=== PATIENT | female | born 2000 | race Caucasian/White ===

== ENCOUNTER 2024-10-06 16:22 | Emergency (ER) | payer OTHER, SELFPAY ==
[2024-10-06 16:31] VITALS: BP 125/80; PULSE 91; TEMP 37.2; O2SAT 97; BMI 26.6
[2024-10-06 17:12] LABS: Influenza Virus A Antigen Negative; Influenza Virus B Antigen Negative; Internal Control Within Normal Limits; SARS-CoV-2 Ag NEGATIVE (NEGATIVE)
--- NOTE | 2024-10-06 18:49 | ED.URI1 ---
HPI - URI/Sore Throat General Chief Complaint: Upper Respiratory Infection Stated Complaint: FLU LIKE SYMPTOMS Time Seen by Provider: 10/06/24 18:43 Source: patient Limitations: no limitations History of Present Illness HPI Narrative: Patient is a 24-year-old female who presents to the emergency department for the evaluation of upper respiratory symptoms that began yesterday. She reports nasal drainage, sore throat, cough. Her family members have been diagnosed with influenza. She has had no objective fevers but reports hot and cold chills. She has no concern for . She has had no vomiting or diarrhea. No medications prior to arrival. Related Data Previous Rx's ?Medication ?Instructions ?Recorded vnsbudsbgvneayo-yyqmqibnbovvbam-BR 10 ml PO Q6H PRN cold symptoms 10/06/24 2 mg-30 mg-10 mg/5 mL oral syrup #200 mL (Bromfed DM) ondansetron 4 mg disintegrating 4 mg PO Q6H PRN nausea and 10/06/24 tablet vomiting #12 tabs Allergies Allergy/AdvReac Type Severity Reaction Status Date / Time No Known Drug Allergies Allergy Verified 10/06/24 16:31 Review of Systems ROS Constitutional Reports: chills; Denies: fever Ears, nose, mouth, and throat Reports: throat pain, nasal discharge and nasal congestion Cardiovascular Denies: chest pain Respiratory Reports: cough; Denies: shortness of breath Gastrointestinal Denies: nausea or vomiting Integumentary/Breast Denies: rash Neurological Reports: headache Hematologic/Lymphatic Denies: easy bruising or easy bleeding PFSH PFS Social History Little interest or pleasure in doing things: not at all Feeling down, depressed, or hopeless: not at all Exam Narrative Exam Narrative: Gen.: Awake, alert, in no distress Head: Normocephalic, atraumatic ENT: Moist mucous membranes, left TM is bulging, no pharyngeal erythema or tonsillar edema. Uvula midline with airway widely open and patent. No trismus or drooling Respiratory: No respiratory distress, lungs clear bilaterally Cardio: Regular rate and rhythm Extremities: Moves extremities equally Psych: Normal mood and affect Neuro: No focal neuro deficit Skin: Warm, dry, intact Constitutional Vital Signs, click to edit/add: Last Vital Signs Temp 99.0 F 10/06/24 16:31 Pulse 91 H 10/06/24 16:31 Resp 18 10/06/24 16:31 BP 125/80 10/06/24 16:31 Pulse Ox 97 10/06/24 16:31 O2 Del Method Room Air 10/06/24 16:31 Course Vital Signs Vital signs: Vital Signs Temperature 99.0 F 10/06/24 16:31 Pulse Rate 91 H 10/06/24 16:31 Respiratory Rate 18 10/06/24 16:31 Blood Pressure 125/80 10/06/24 16:31 Pulse Oximetry 97 10/06/24 16:31 Oxygen Delivery Method Room Air 10/06/24 16:31 Temperature 99.0 F 10/06/24 16:31 Pulse Rate 91 H 10/06/24 16:31 Respiratory Rate 18 10/06/24 16:31 Blood Pressure 125/80 10/06/24 16:31 Pulse Oximetry 97 10/06/24 16:31 Oxygen Delivery Method Room Air 10/06/24 16:31 MDM - URI/Sore Throat MDM Narrative Medical decision making narrative: Patient with negative swabs for influenza and COVID, however with multiple family member sick in the home with the same, patient was counseled that she likely has influenza. She was treated with Decadron in the ER and discharged home on Bromfed-DM and Zofran. Follow-up PCP and return to the ER if symptoms change or worsen SUPERVISED APC VISIT, PHYSICIAN ATTESTATION: Based on the medical record the care appears appropriate. ? Medical Records Attestation: I reviewed the patient's medical records. Lab Data Attestation: I reviewed the patient's lab results. Labs: Lab Results 10/06/24 Range/Units 16:34 Influenza Type A Ag Negative Influenza Type B Ag Negative SARS-CoV-2 Ag (CV2AG) Negative (NEGATIVE) Discharge Plan Discharge Chief Complaint: Upper Respiratory Infection Clinical Impression: Upper respiratory infection, Influenza Patient Disposition: Home, Self-Care Time of Disposition Decision: 18:47 Condition: Good Prescriptions / Home Meds: New yzpmifeiawukrik-tpjqvssmu-QQ [Bromfed DM] 2-30-10 mg/5 mL syrup 10 ml PO Q6H PRN (Reason: cold symptoms) Qty: 200 0RF ondansetron 4 mg tablet,disintegrating 4 mg PO Q6H PRN (Reason: nausea and vomiting) Qty: 12 0RF Print Language: Hungarian Instructions: Influenza (ED) Referrals: Physician,Non-Staff, MD [Primary Care Provider] - 1 week
[2024-10-06] MEDS: DEXAMETHASONE SOD PHOS 10 MG/ML VIAL PO (18:56)
== END 2024-10-06 18:58 | disposition home or self-care (01) ==
PROVIDERS: Emergency Provider Emergency Medicine; PCP Family Medicine
DX: J11.1 Influenza due to unidentified influenza virus with other respiratory manifestations (principal); R05.9 Cough, unspecified; J34.89 Other specified disorders of nose and nasal sinuses
CPT/HCPCS: 87804; 87811; 99284; J1100

== ENCOUNTER 2025-07-26 19:12 | Emergency (ER) | payer BC, SELFPAY ==
--- OUTSIDE RECORDS SUMMARY | 2025-01-18 04:30 | XMS_ITS ---
Author Organization [facility] Serv[facility] Address [address] [place] [address] Care Team Providers Care Visual Coordinator Name Role Phone Shelley Montana Primary Care Provider [phone] REASON FOR VISIT 3 weeks Social History Sex Assigned At : Social History Observation Description Sex Assigned At Female Encounters Encounter Location Date Provider Diagnosis [place] [address] [place] [address] 01/18/2025 Shelley Vinh Plan Of Treatment Next Appt Details Provider Name:Shelley Welchmalu castañeda, 08/16/2025 12:45:00 PM, [address] [place], [address], Progress Notes * TERESA PARIKH MDOB:[birth year] (25 yo F)Acc No.[id number]:01/18/2025 Behavioral Health Patient: TERESA BANEGAS Provider:?CATERINA PALMER-BCDOB: 2000???Age:24 Y???Sex:FemaleDate:01/18/2025Phone:[phone]:[address] [place] [id number] Subjective: * Chief Complaints: * 3 weeks Billing Information: * Procedure Codes: * Electronic signature of CATERINA Palmer BC on 07/26/2025 at 07:51 PM EST Sign off status: Pending * Appointment Provider: Lyle MONTANA PMHNP-BC Date: 0 01/18/2025 Generated for Printing/Faxing/eTransmitting on:?07/26/2025 07:51 PM EST
--- OUTSIDE RECORDS SUMMARY | 2025-02-25 03:30 | XMS_ITS ---
Author Organization [facility] Address [address] [place] [address] Care Team Providers Care Library Helper Name Role Phone Shelley Justice Primary Care Provider [phone] Nikole Tang [phone] REASON FOR VISIT therapy Social History Sex Assigned At : Social History Observation Description Sex Assigned At Female Encounters Encounter Location Date Provider Diagnosis [facility] [address] [place] [address] 02/25/2025 Nikole Paulson Plan Of Treatment Next Appt Details Provider Name:Shelley castañeda, 08/16/2025 12:45:00 PM, [address] [place], [address], Progress Notes * TERESA PARIKH MDOB:[birth year] (25 yo F)Acc No.[id number]:02/25/2025 Consult - Patient Patient: TERESA BANEGAS :?Nikole Paulson LPCDOB:2000???Age:24 Y ???Sex:FemaleDate:02/25/2025Phone:[phone]:[address] [place] [id number]:Shelley Justice Subjective: * Chief Complaints: * T herapy Care Plan Details* * Electronic signature of Nikole Paulson LPC on 07/26/2025 at 07:51 PM ESTSign off status: Pending * Provider: Jolene Paulson LPC Date: 0 02/25/2025 Generated for Printing/Faxing/eTransmitting on:?07/26/2025 07:51 PM EST
[2025-07-26 19:19] VITALS: BP 126/86; PULSE 97; TEMP 38.2; O2SAT 100; BMI 25.8
--- NOTE | 2025-07-26 19:33 | ED.URI1 ---
HPI - URI/Sore Throat General Chief Complaint: Upper Respiratory Infection Stated Complaint: EYE PAIN/NEAR SYNCOPE Time Seen by Provider: 07/26/25 19:25 History of Present Illness HPI Narrative: ill past 4 days. Boyfriends mother who lives with them is ill also. Has body aches, rhinorrhea, cough, nausea and feels dizzy. States her eyes ache also. vision is ok. No headache . Not short of breath. Related Data Home Medications ?Medication ?Instructions ?Recorded ?Confirmed buspirone 10 mg tablet mg 07/26/25 Allergies Allergy/AdvReac Type Severity Reaction Status Date / Time No Known Drug Allergies Allergy Verified 10/06/24 16:31 Review of Systems ROS Status of ROS 10 or more systems reviewed and unremarkable except as noted in history and below [facility] Social History Little interest or pleasure in doing things: not at all Feeling down, depressed, or hopeless: not at all Exam Constitutional Vital Signs, click to edit/add: Last Vital Signs Temp 99.7 F 07/26/25 20:47 Pulse 97 H 07/26/25 19:19 Resp 18 07/26/25 19:19 BP 126/86 07/26/25 19:19 Pulse Ox 100 07/26/25 19:19 O2 Del Method Room Air 07/26/25 19:19 Common normals: no apparent distress, average body habitus, oriented x3, no limitations, healthy appearing, alert and well nourished [facility] Common normals: normocephalic and head/scalp atraumatic Other: TMs clear Eye Common normals: PERRL, EOMs intact bilaterally and conjunctivae normal Respiratory Common normals: normal respiratory effort, no retractions, no use of accessory muscles and clear to auscultation bilaterally Cardio Common normals: regular rate, regular rhythm, S1 normal heart sound and S2 normal heart sound GI Common normals: Normal to inspection, nondistended, normoactive bowel sounds present, soft to palpation and non-tender Extremity Common normals: normal to inspection and full ROM Neuro Common normals: oriented x3, CN's II-XII intact bilaterally, moves all extremities and no focal motor deficits Psych Appearance: grossly normal Course Vital Signs Vital signs: Vital Signs Temperature 100.7 F H 07/26/25 19:19 Pulse Rate 97 H 07/26/25 19:19 Respiratory Rate 18 07/26/25 19:19 Blood Pressure 126/86 07/26/25 19:19 Pulse Oximetry 100 07/26/25 19:19 Oxygen Delivery Method Room Air 07/26/25 19:19 Temperature 99.7 F 07/26/25 20:47 Pulse Rate 97 H 07/26/25 19:19 Respiratory Rate 18 07/26/25 19:19 Blood Pressure 126/86 07/26/25 19:19 Pulse Oximetry 100 07/26/25 19:19 Oxygen Delivery Method Room Air 07/26/25 19:19 MDM - URI/Sore Throat MDM Narrative Medical decision making narrative: patient presents with body aches, rhinorrhea, cough that is dry and sensation of dizziness. No headache. Exam unremarkable except for sniffling. chest xray clear. CT sinuses with mucosa sinus thickening . ? odontogenic. Patient re interviewed and states she had a root canal2-3 months ago. Patient informed of diagnosis of influenza confirmed with nasal swab. will plan to treat with course of zithromax due to sinus thickening and have her follow up with her doctor for a recheck Lab Data Labs: Lab Results 07/26/25 07/26/25 Range/Units 19:45 19:47 WBC 3.8 L (4.0-11.0) 10^3/uL RBC 4.68 (4.20-5.40) 10^6/uL Hgb 13.6 (12.0-16.0) g/dL Hct 40.4 (36.0-48.0) % MCV 86.3 (81.0-99.0) fL MCH 29.1 (26.7-34.0) pg MCHC 33.7 (29.9-35.2) g/dL RDW 12.4 (11.0-15.0) % Plt Count 207 (150-450) 10^3/uL MPV 10.0 (9.5-13.5) fL Neut % (Auto) 68.0 (43.0-75.0) % Lymph % (Auto) 19.7 L (20.5-60.0) % [place] % (Auto) 11.2 (1.7-12.0) % Eos % (Auto) 0.8 L (0.9-7.0) % Baso % (Auto) 0.3 (0.2-2.0) % Neut # (Auto) 2.6 (1.4-6.5) 10^3/uL Lymph # (Auto) 0.7 L (1.2-3.8) 10^3/uL [place] # (Auto) 0.4 (0.3-0.8) 10^3/uL Eos # (Auto) 0.0 (0.0-0.7) 10^3/uL Baso # (Auto) 0.0 (0.0-0.1) 10^3/uL Abs Immat Gran (auto) 0.00 (0.00-0.03) 10^3/uL Imm/Tot Granulo (auto) 0.0 (0.0-0.5) % Sodium 138 (136-145) mmol/L Potassium 3.6 (3.5-5.1) mmol/L Chloride 104 (98-107) mmol/L Carbon Dioxide 24.6 (21.0-32.0) mmol/L Anion Gap 13.0 BUN 8.0 (7.0-18.0) mg/dL Creatinine 0.81 (0.55-1.02) mg/dL Est GFR ( Amer) >60 (>=60 mL/min/1.73m^2) Est GFR (Non-Af Amer) >60 (>=60 mL/min/1.73m^2) BUN/Creatinine Ratio 9.9 Glucose 91 (74-106) mg/dL Lactate 0.7 (0.4-2.0) mmol/L Calcium 8.9 (8.5-10.1) mg/dL Total Bilirubin 0.2 (0.2-1.0) mg/dL AST 37 (15-37) U/L ALT 33 (14-59) U/L Alkaline Phosphatase 79 (46-116) U/L Total Protein 8.2 (6.4-8.2) g/dL Albumin 4.0 (3.4-5.0) g/dL Globulin 4.2 g/dL Albumin/Globulin Ratio 1.0 Urine Color Lt. yellow (YELLOW) Urine Clarity Clear (CLEAR) Urine pH 5.5 (5.0-9.0) Ur Specific [place] 1.025 (1.005-1.025) Urine Protein Negative (NEG/TRACE) mg/dL Urine Glucose (UA) Negative (NEGATIVE) mg/dL Urine Ketones Negative (NEGATIVE) mg/dL Urine Occult Blood Negative (NEGATIVE) Urine Nitrite Negative (NEGATIVE) Urine Bilirubin Negative (NEGATIVE) Urine Urobilinogen 0.2 (0.2-1.0) EU/dL Ur Leukocyte Esterase Negative (NEGATIVE) Urine RBC None seen (0-2) #/HPF Urine WBC 0-2 A (NONE SEEN) #/HPF Ur Squamous Epith Cells Moderate A (NONE/RARE) #/LPF Urine Crystals None seen (None Seen) #/HPF Urine Bacteria None seen (NONE SEEN) #/HPF Urine Casts None seen (NONE SEEN) #/LPF Urine Mucus None seen (NONE SEEN) Ur Culture Indicated? No Urine HCG, Qual Negative (NEGATIVE) Influenza Type A Ag Positive A Influenza Type B Ag Negative SARS-CoV-2 Ag (CV2AG) Negative (NEGATIVE) Imaging Data Abdominal x-ray: Radiologist's impression: ITS Impressions Chest X-Ray 07/26/25 19:36 IMPRESSION: No acute cardiopulmonary pathology. Impression dictated by: Juventino Mcclendon M.D. 07/26/2025 8:31 PM Dictation Location: [employer] Electronically authenticated by: [id number] Y Date: 07/26/2025 20:[address] 07/26/25 19:36 IMPRESSION: No evidence of fracture or dislocation. There is evidence of previous dental work along the left maxillary molar with radiodense material extending through the apex of the second most posterior left maxillary molar into the floor of the left maxillary sinus. Mucosal thickening in the left maxillary sinus may be odontogenic in origin. Impression dictated by: Juventino Mcclendon M.D. 07/26/2025 8:37 PM Dictation Location: [employer] Electronically authenticated by: [id number] Y Date: 07/26/2025 20:37 Discharge Plan Discharge Chief Complaint: Upper Respiratory Infection Clinical Impression: Influenza, Sinusitis Patient Disposition: Home, Self-Care Prescriptions / Home Meds: No Action buspirone 10 mg tablet Print Language: Kittitian Instructions: Sinusitis (ED), Influenza (ED) Referrals: Nany Gmienez MD [Primary Care Provider] - 1 week
--- NOTE | 2025-07-26 19:36 | XR_ITS ---
The [place] [id number] Patient Name: TERESA PARIKH MRN: [id number] date: 2000 Sex: F Assigned Patient Location: ED.MAIN Current Patient Location: ED.MAIN Accession/Order Number: [id number] Exam Date: 07/26/2025 19:49 Report Date: 07/26/2025 20:31 At the request of: MEENAKSHI IRAHETA MD Procedure: XR chest 2V XR chest 2V 07/26/2025 7:57 PM SIGNS AND SYMPTOMS: ^cough PROTOCOL: Frontal and lateral radiograph of the chest COMPARISON: None FINDINGS: The trachea is midline. The heart and mediastinal structures are within normal limits. The lung parenchyma is clear. The bony thorax is intact. XR/XR chest 2V IMPRESSION: No acute cardiopulmonary pathology. Impression dictated by: Juventino Mcclendon M.D. 07/26/2025 8:31 PM Dictation Location: [place] [address] Electronically authenticated by: [id number] Y Date: 07/26/2025 20:31
--- NOTE | 2025-07-26 19:36 | CT_ITS ---
The [address] [address] Patient Name: TERESA PARIKH MRN: [id number] date: 2000 Sex: F Assigned Patient Location: ED.MAIN Current Patient Location: ED.MAIN Accession/Order Number: [id number] Exam Date: 07/26/2025 19:49 Report Date: 07/26/2025 20:37 At the request of: MEENAKSHI IRAHETA MD Procedure: CT facial bones wo con CT facial bones wo con 07/26/2025 7:57 PM SIGNS AND SYMPTOMS: ^sinusitis , cough, dizziness TECHNIQUE: Multidetector CT axial slices of the facial bones were obtained. Helical, sagittal, coronal, and 3-D reconstructions were performed and viewed on a separate workstation and reviewed to further define anatomy and possible pathology. CT was performed with one or more of the following dose reduction techniques: Automated exposure control, adjustment of the mA and/or kV according to patient size, or use of iterative reconstruction technique. COMPARISON: None. FINDINGS: Fracture: None. Paranasal sinuses and mastoids: Mucosal thickening is noted in the maxillary sinuses left greater than right with mucosal thickening opacifying the infundibulum of the left ostiomeatal complex and narrowing the right ostiomeatal complex. Mild mucosal thickening is noted in the ethmoid air cells and left sphenoid sinus. There is evidence of previous dental work along the left maxillary molar with radiodense material extending through the apex into the floor of the left maxillary sinus. Mucosal thickening in the left maxillary sinus may be odontogenic in origin. Soft tissue swelling: None. Mildly prominent cervical lymph nodes are noted. These may be reactive in nature. Globes: Intact. Upper aerodigestive tract: Within normal limits. Joints: Intact. Temporal mandibular joints: Intact. Infratemporal fossa: Within normal limits. CT/CT facial bones wo con IMPRESSION: No evidence of fracture or dislocation. There is evidence of previous dental work along the left maxillary molar with radiodense material extending through the apex of the second most posterior left maxillary molar into the floor of the left maxillary sinus. Mucosal thickening in the left maxillary sinus may be odontogenic in origin. Impression dictated by: Juventino Mcclendon M.D. 07/26/2025 8:37 PM Dictation Location: [place] [address] Electronically authenticated by: [id number] Y Date: 07/26/2025 20:37
--- OUTSIDE RECORDS SUMMARY | 2025-07-26 19:51 | XMS_ITS | Clinical Summary ---
Author Organization [facility] Healthcare Address [address] [place] [address] Care Team Providers Care Stamping Mill Tender Name Role Phone Unavailable Primary Care Provider Unavailabl e Social History Tobacco UseTypesPacks/DayYears UsedDateSmoking Tobacco: Never Assessed CommentsUnknownSex and Gender InformationValueDate RecordedSex Assigned at Not on fileLegal CapZvioni24/15/2023 7:20 PM EDTGender IdentityNot on fileSexual OrientationNot on file Last Filed Vital Signs Vital SignReadingTime TakenCommentsBlood Erwcxibs397/6408 12:00 PM EDT Pulse--Temperature--Respiratory Rate--Oxygen Saturation--Inhaled Oxygen Concentration--Wzncqe93.7 kg (197 lb 12.8 oz)03/16/2021 12:00 PM JGYWjxnbw736.2 cm (5' 7 )03/16/2021 12:00 PM EDTBody Mass Index30.9808 12:00 PM EDT Plan of Treatment Not on file Insurance
--- OUTSIDE RECORDS SUMMARY | 2025-07-26 19:51 | XMS_ITS | Patient Health Record ---
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 Name Role Phone Shelley Justice Primary Care Provider Nikole Paulson Unavailable [phone] Allergies No Known Allergies Reason For Referral No Information Medications Medication SIG (Take, Route, Frequency, Duration) Notes Start Date End Date Status Sertraline HCl 100 MG Tablet 1 tablet Orally Onc e a day; Duration: 30 days 5ActivePrazosin HCl 2 MG Capsule1 capsule at bedtime Orally Once a day; Duration: 30 days501/6ActivebusPIRone HCl 10 MG Capsule2 tablets Orally Twice a day; Duration: 30 daysincrease dose501/6Active LaMICtal 150 MG Tablet1 tablet Orally daily; Duration: 30 daysincrease in dose 5Active Social History Tobacco Use: Social History Observation Description Date Details (start date - stop date) Former Smoker NA - NA Sex Assigned At : Social History Observation Description Sex Assigned At Female Social History GeneralSocial InfoQuestionAnswerNotesRapid Mood ScreeningHave there been at least 6 different periods of time (at least 2 weeks) when you felt deeply depressed?NoDid you have problems with depression before the age of 18?NoHave you ever had to stop or change your antidepressant because it made you highly irritable or hyper?NoHave you ever had a period of at least 1 week during which you were more talkative than normal withthoughts racing in your head?YesHave you ever had a period of at least 1 week during which you felt any of the following: unusuallyhappy; unusually outgoing; or unusually energetic?NoHave you ever had a period of at least 1 week during which you needed much less sleep than usual?No Depression Screening (PHQ-9):Little interest or pleasure in doing thingsSeveral daysFeeling down, depressed, or hopelessSeveral daysTrouble falling or staying asleep, or sleeping too muchNearly every dayFeeling tired or having little energyNearly every dayPoor appetite or overeatingNearly every dayFeeling bad about yourself-or that you are a failure or have let yourself or your family downNot at allTrouble concentrating on things, such as reading the newspaper or watching televisionNearly every dayMoving or speaking so slowly that other people could have noticed. Or the opposite being so fidgetyor restless that you have been moving around a lot more than usualNearly every dayThoughts that you would be better off , or of hurting yourself in some waySeveral days(Consider Suicide Assessment Risk)Total Qdwgx34CgrgfnitkafbmEktnogxfau severe depressionSubstance abuse/mental health issues of patient/familyPatient - Illegal Drug Useuses marijuana occassionallyFood Insecurity ScreeningSocial Info QuestionAnswerNotesFood Insecurity ScreeningWithin the last 12 months, have you been worried about your food running out before you received money to buy more? NoWithin the last 12 months, did the food you buy not last, and you didn't have money to buy more?NoWithin the last 12 months, have you had any difficulty affording to eat balanced meals including all food groups (fruits, vegetables, protein, and whole grains)?NoDrug/Alcohol:Social InfoQuestionAnswerNotesAUDIT-C (Standard)Did you have a drink containing alcohol in the past year?NoPoints0 InterpretationNegativeTobacco Use:Social InfoQuestionAnswerNotesTobacco Control (Standard)Tobacco use:Former smoker? How long has it been since you last smoked? 6-12 months Problems Problem Type SNOMED Code ICD Code Onset Dates Problem Status W/U Status Risk Notes Problem Posttraumatic stress disorder (03953980) PTSD (post-traumatic stress disorder) (F43.10) ActiveconfirmedProblemBipolar 2 disorder (67600574)Bipolar 2 disorder (F31.81) ActiveconfirmedProblemGeneralized anxiety disorder (27496670)Generalized anxiety disorder (F41.1)Activeconfirmed Vital Signs Heart Rate 73 /min 06/16/2025 Ypcccercfhi26.6 degrees Mffrmpappd07/05/5975Lqulevwp66 %06/16/2025lood pressure cqpokgtfw00 mm Hg06/16/20257609Vpvfrv96 in06/16/2025lood pressure ghmjbiqn353 mm Hg 06/16/20251227Lssuni726.8 lbs108/16/2024BMI25.97 kg/m206/16/2025 Encounters Encounter Location Date Provider Diagnosis [facility] [address] [place] [address] 01/28/2025 Shelley Slingwine PTSD (post-traumatic stress disorder) F43.10 ; Bipolar 2 disorder F31.81 and Generalized anxiety disorder F41.1 [facility] [address] [address] 01/28/2025 Shelley Slingwine [facility] [place] [address] Shelley SlingwineBipolar 2 disorder F31.81[facility] [place] [address]/heri SlingwineGeneralized anxiety disorder F41.1[facility] [place] [address]/heri Slingwine Generalized anxiety disorder F41.1 ; Bipolar 2 disorder F31.81 and PTSD (post- traumatic stress disorder) F43.10[address] [place] [address]/5Cheri SlingwineGeneralized anxiety disorder F41.1 ; Bipolar 2 disorder F31.81 and PTSD (post-traumatic stress disorder) F43.10[facility] [place] [address]/heri Slingwine Generalized anxiety disorder F41.1 ; Bipolar 2 disorder F31.81 and PTSD (post- traumatic stress disorder) F43.10[facility] [place] [address]/5Cheri SlingwineGeneralized anxiety disorder F41.1 ; PTSD (post-traumatic stress disorder) F43.10 and Bipolar 2 disorder F31.81[facility] [address] [place] [address]/heri SlingwineGeneralized anxiety disorder F41.1 ; Bipolar 2 disorder F31.81 and PTSD (post-traumatic stress disorder) F43.10[facility] [id number] [place] [address] 05/19/2025heri SlingwineGeneralized anxiety disorder F41.1 ; Bipolar 2 disorder F31.81 and PTSD (post-traumatic stress disorder) F43.10[id number] [place] [address]/heri SlingwineGeneralized anxiety disorder F41.1 ; Bipolar 2 disorder F31.81 and PTSD (post-traumatic stress disorder) F43.10 Assessments Encounter Date Diagnosis (ICD Code) Assessment Notes Treatment Notes Treatment Clinical Notes Section Notes 12/31/2024 Bipolar 2 disorder (ICD-10 - F31 .81) Lamictal: Patient educated on dosing schedule of medication. Made aware to make prescriber aware ofany unexplainable rash or flu-like symptoms. If outside of office hours patient should report to the ER. Made aware to contact the office with any questions or concerns. Provided crisis hotline number. Patient states has good support system. Will call office or report to the ER with suicidal ideations. 12/31/2024Generalized anxiety disorder (ICD-10 - F41.1)Buspar is a medication used for anxiety. The medication can cause dizziness, sedation, and restless. Please contact the office if you experience these symptoms. The medication typically takes 2-4 weeks to achieve efficacy. Made aware to contact office if symptoms worsen.01/18/2025Generalized anxiety disorder (ICD-10 - F41.1)Buspar is a medication used for anxiety. The medication can cause dizziness, sedation, and restless. Please contact the office if you experience these symptoms. The medication typically takes 2-4 weeks to achieve efficacy. Made aware to contact office if symptoms worsen.01/28/2025PTSD (post-traumatic stress disorder) (ICD- 10 - F43.10)01/29/2025ipolar 2 disorder (ICD-10 - F31.81)02/24/2025Generalized anxiety disorder (ICD-10 - F41.1) Recommended treatment is: _ FDA approved medication for this age group include Selective Serotonin Reuptake Inhibitors (SSRI) and Selective Norepinephrine Reuptake Inhibitors (SNRI). . Selective serotonin reuptake inhibitors? can cause nausea, headache, upset stomach, diarrhea, constipation, anxiety, irritability, and sexual dysfunction. . Please monitor for worsening of symptoms, especially suicidal ideations or morbid thoughts, and call office and or go to the emergency department immediately. Pt does not endorse exhibiting symptoms aligning with douglas. . The patient verbalizes understanding with all questions answered thoroughly and is in agreement with treatment plan. . Continue current treatment plan Patient/Guardian will call sooner if symptoms worsen. Patient understands to go to ER if needed if symptoms become severe. Crisis Intervention plan was discussed and agreed upon. Patient/Guardian will call 911 in case of emergency. Emergency contact information was provided to the patient/guardian. Buspar is a medication used for anxiety. The medication can cause dizziness, sedation, and restless. Please contact the office if you experience these symptoms. The medication typically takes 2-4 weeks to achieve efficacy. Made aware to contact office if symptoms worsen. 03/24/2025Generalized anxiety disorder (ICD-10 - F41.1) Buspar is a medication used for anxiety. The medication can cause dizziness, sedation, and restless. Please contact the office if you experience these symptoms. The medication typically takes 2-4 weeks to achieve efficacy. Made aware to contact office if symptoms worsen. Recommended treatment is: _ FDA approved medication for this age group include Selective Serotonin Reuptake Inhibitors (SSRI) and Selective Norepinephrine Reuptake Inhibitors (SNRI). . Selective serotonin reuptake inhibitors? can cause nausea, headache, upset stomach, diarrhea, constipation, anxiety, irritability, and sexual dysfunction. . Please monitor for worsening of symptoms, especially suicidal ideations or morbid thoughts, and call office and or go to the emergency department immediately. Pt does not endorse exhibiting symptoms aligning with douglas. . The patient verbalizes understanding with all questions answered thoroughly and is in agreement with treatment plan. . Continue current treatment plan Patient/Guardian will call sooner if symptoms worsen. Patient understands to go to ER if needed if symptoms become severe. Crisis Intervention plan was discussed and agreed upon. Patient/Guardian will call 911 in case of emergency. Emergency contact information was provided to the patient/guardian. 04/21/2025Generalized anxiety disorder (ICD-10 - F41.1) Patient educated on antipsychotic dosing schedule and side effects. Made aware to not abruptly stopthe medication. Made aware to notify the office or go to the ER if experience any abnormal repetitive movements. Also, made aware to notify office of any nausea, vomiting, or dizziness. Made aware tonot stop medication abruptly. This is an FDA approved use for this medication. Discussed with patient crisis plan. Provided crisis hotline number. [facility] has good support system.Made aware to contact office if has an increase in suicidal thoughts. If outside of office hours, patient to go to the ER. Patient will call the office with any questions or concerns. Buspar is a medication used for anxiety. The medication can cause dizziness, sedation, and restless. Please contact the office if you experience these symptoms. The medication typically takes 2-4 weeks to achieve efficacy. Made aware to contact office if symptoms worsen. 05/19/2025Generalized anxiety disorder (ICD-10 - F41.1) Buspar is a medication used for anxiety. The medication can cause dizziness, sedation, and restless. Please contact the office if you experience these symptoms. The medication typically takes 2-4 weeks to achieve efficacy. Made aware to contact office if symptoms worsen. Educated on antidepressant. Made aware of Black Box Warning that it can increase suicidal thoughts,especially in minors. If this happens go to the ER. Make the office aware or go to the ER, if you experience seizures or an increase in activity and irritability. Made aware to not abruptly stop medication. Medication can cause headache and nausea. . Denies suicidal or homicidal ideation or plan. No morbid thoughts. Interpersonal issues discussed. Support provided Insight oriented/ Behavior modifying/ Supportive therapy . 06/16/2025Generalized anxiety disorder (ICD-10 - F41.1) Buspar is a medication used for anxiety. The medication can cause dizziness, sedation, and restless. Please contact the office if you experience these symptoms. The medication typically takes 2-4 weeks to achieve efficacy. Made aware to contact office if symptoms worsen. Educated on antidepressant. Made aware of Black Box Warning that it can increase suicidal thoughts,especially in minors. If this happens go to the ER. Make the office aware or go to the ER, if you experience seizures or an increase in activity and irritability. Made aware to not abruptly stop medication. Medication can cause headache and nausea. . Denies suicidal or homicidal ideation or plan. No morbid thoughts. Interpersonal issues discussed. Support provided Insight oriented/ Behavior modifying/ Supportive therapy . 06/16/2025Generalized anxiety disorder (ICD-10 - F41.1)05/19/2025ipolar 2 disorder (ICD-10 - F31.81) Lamictal: Patient educated on dosing schedule of medication. Made aware to make prescriber aware ofany unexplainable rash or flu-like symptoms. If outside of office hours patient should report to the ER. Made aware to contact the office with any questions or concerns. Provided crisis hotline number. Patient states has good support system. Will call office or report to the ER with suicidal ideations. 06/16/2025ipolar 2 disorder (ICD-10 - F31.81) Lamictal: Patient educated on dosing schedule of medication. Made aware to make prescriber aware ofany unexplainable rash or flu-like symptoms. If outside of office hours patient should report to the ER. Made aware to contact the office with any questions or concerns. Provided crisis hotline number. Patient states has good support system. Will call office or report to the ER with suicidal ideations. 5Bipolar 2 disorder (ICD-10 - F31.81) Lamictal: Patient educated on dosing schedule of medication. Made aware to make prescriber aware ofany unexplainable rash or flu-like symptoms. If outside of office hours patient should report to the ER. Made aware to contact the office with any questions or concerns. Provided crisis hotline number. Patient states has good support system. Will call office or report to the ER with suicidal ideations. 5Bipolar 2 disorder (ICD-10 - F31.81) Lamictal: Patient educated on dosing schedule of medication. Made aware to make prescriber aware ofany unexplainable rash or flu-like symptoms. If outside of office hours patient should report to the ER. Made aware to contact the office with any questions or concerns. Provided crisis hotline number. Patient states has good support system. Will call office or report to the ER with suicidal ideations. 03/24/2025PTSD (post-traumatic stress disorder) (ICD-10 - F43.10)prazosin: Encouraged to call office or report to the if the patient experiences dizziness or swlkwffrztngunj60/19/2025ipolar 2 disorder (ICD-10 - F31.81)12/31/2024PTSD (post-traumatic stress disorder) (ICD-10 - F43.10) prazosin: Encouraged to call office or report to the if the patient experiences dizziness or lightheadedness . Informed consent obtained: YES, we discussed the diagnosis/diagnoses, the treatment options, treatment(s) recommended vs. no treatment. We discussed risks and benefits of treatment options, treatmentrecommendations vs. no treatment. . . Pt is to continue current treatment plan Has good tolerability and compliance with medication Call for problems All questions and concerns discussed . 01/18/2025ipolar 2 disorder (ICD-10 - F31.81) Lamictal: Patient educated on dosing schedule of medication. Made aware to make prescriber aware ofany unexplainable rash or flu-like symptoms. If outside of office hours patient should report to the ER. Made aware to contact the office with any questions or concerns. Provided crisis hotline number. Patient states has good support system. Will call office or report to the ER with suicidal ideations. 01/18/2025PTSD (post-traumatic stress disorder) (ICD-10 - F43.10) prazosin Encouraged to call office or report to the if the patient experiences dizziness or lightheadedness . Informed consent obtained: YES, we discussed the diagnosis/diagnoses, the treatment options, treatment(s) recommended vs. no treatment. We discussed risks and benefits of treatment options, treatmentrecommendations vs. no treatment. . . Pt is to continue current treatment plan Has good tolerability and compliance with medication Call for problems All questions and concerns discussed . 01/28/2025Generalized anxiety disorder (ICD-10 - F41.1)5Bipolar 2 disorder (ICD-10 - F31.81) Lamictal: Patient educated on dosing schedule of medication. Made aware to make prescriber aware ofany unexplainable rash or flu-like symptoms. If outside of office hours patient should report to the ER. Made aware to contact the office with any questions or concerns. Provided crisis hotline number. Patient states has good support system. Will call office or report to the ER with suicidal ideations. . Informed consent obtained: YES, we discussed the diagnosis/diagnoses, the treatment options, treatment(s) recommended vs. no treatment. We discussed risks and benefits of treatment options, treatmentrecommendations vs. no treatment. . . Pt is to continue current treatment plan Has good tolerability and compliance with medication Call for problems All questions and concerns discussed . 02/24/2025PTSD (post-traumatic stress disorder) (ICD-10 - F43.10) prazosin; Encouraged to call office or report to the if the patient experiences dizziness or lightheadedness . Informed consent obtained: YES, we discussed the diagnosis/diagnoses, the treatment options, treatment(s) recommended vs. no treatment. We discussed risks and benefits of treatment options, treatmentrecommendations vs. no treatment. . . Pt is to continue current treatment plan Has good tolerability and compliance with medication Call for problems All questions and concerns discussed . 04/21/2025PTSD (post-traumatic stress disorder) (ICD-10 - F43.10) prazosin: Encouraged to call office or report to the if the patient experiences dizziness or lightheadedness . Informed consent obtained: YES, we discussed the diagnosis/diagnoses, the treatment options, treatment(s) recommended vs. no treatment. We discussed risks and benefits of treatment options, treatmentrecommendations vs. no treatment. . . Pt is to continue current treatment plan Has good tolerability and compliance with medication Call for problems All questions and concerns discussed . 06/16/2025PTSD (post-traumatic stress disorder) (ICD-10 - F43.10)prazosin: Encouraged to call office or report to the if the patient experiences dizziness or hnwhqhjqyassjjy35/08/2025PTSD (post-traumatic stress disorder) (ICD-10 - F43.10) prazosin: Encouraged to call office or report to the if the patient experiences dizziness or lightheadedness . Informed consent obtained: YES, we discussed the diagnosis/diagnoses, the treatment options, treatment(s) recommended vs. no treatment. We discussed risks and benefits of treatment options, treatmentrecommendations vs. no treatment. . . Pt is to continue current treatment plan Has good tolerability and compliance with medication Call for problems All questions and concerns discussed . Plan Of Treatment Next Appt Details Provider Name:Shelley castañeda, 08/16/2025 12:45:00 PM, [address] [place] [address], [phone], Medical (General) History Surgical History Surgery Date(Month/Year) 7 ear surgeries appendectomytonsillectomy and adenoidectomy age [age]lasix surgerywisdom teeth Hospitalization History Reason Date(Month/Year) tonsillectomy and adenoidectomy
--- OUTSIDE RECORDS SUMMARY | 2025-07-26 19:51 | XMS_ITS | Clinical Summary ---
Author Organization [facility] Address [address], [address] [place] [address] Care Team Providers Care Systems Analyst Engineer Name Role Phone Nany Gimenez MD Primary Care Provider [phone] Allergies No known active allergies Medications MedicationSigDispense QuantityRefillsLast FilledStart DateEnd DateStatus ibuprofen (ADVIL;MOTRIN) 600 MG tablet Take 1 tablet by mouth 4 times daily as needed for Pain 40 tablet 03/23/2020Active Additional Information Patient not taking.Reported on 12/31/2023 azithromycin (ZITHROMAX) 1 g powder DISSOLVE 1 (ONE) PACKET in water08/28/2022ctive sertraline (ZOLOFT) 50 MG tablet Take 50 mg by mouth02/15/2021ctive ondansetron (ZOFRAN-ODT) [address] 1 tablet under the tongue every 8 hours as needed for Nausea or Vomiting 10 tablet 4Active Active Problems ProblemNoted DateDiagnosed DateAcute vhiyvcjvlpza20/14/2018Bilateral hearing loss06/09/2015Right lower quadrant abdominal pain Immunizations ImmunizationAdministration DatesNext NfpXAeK2411/28/2005,03/16/2004,02/24/2003, 05/20/2002,2001HPV Quadrivalent (Gardasil)01/05/2016HPV, GARDASIL 9, (age 9y-45y), IM, 0.5mL05/10/2017Hep A, HAVRIX, VAQTA, (age 12m-18y), IM, 0.5mL 12/19/2016,01/05/2016Hep A, HAVRIX, VAQTA, (age 19y+), IM, 1mL02/10/2019 Hepatitis A001/05/2016Hepatitis B (Recombivax HB)05/20/2002,2001,2001 Hib PRP-T, ACTHIB (age 2m-5y, Adlt Risk), HIBERIX (age 6w-4y, Adlt Risk), IM, 0.5mL03/16/2004,02/24/2003,05/20/2002,2001MMR, PRIORIX, M-M-R II, (age 12m+), SC, 0.5mL11/28/2005,05/20/2002Meningococcal ACWY, MENACTRA (MenACWY-D), (age 9m-55y), IM, 0.5mL12/19/2016,01/05/2016Pneumococcal Conjugate 7-valent (Prevnar7)05/20/2002Pneumococcal, PCV-13, PREVNAR 13, (age 6w+), IM, 0.5mL 05/20/2002,2001Poliovirus, IPOL, (age 6w+), SC/IM, 0.5mL11/28/2005, 02/24/2003,05/20/2002,2001TDaP, ADACEL (age 10y-64y), BOOSTRIX (age 10y+), IM, 0.5mL02/25/2014Varicella, VARIVAX, (age 12m+), SC, 0.5mL05/20/2002 Family History RelationNameStatusCommentsFatherAliveMotherAlive Social History Tobacco UseTypesPacks/DayYears UsedDateSmoking Tobacco: NeverSmokeless Tobacco: Never Tobacco Cessation:Counseling Given: Not Answered Alcohol UseStandard Drinks/WeekCommentsNo0 (1 standard drink = 0.6 oz pure alcohol)AUDIT-CAnswerDate RecordedQ1: How often do you have a drink containing alcohol?Never12/31/2023Q2: How many drinks containing alcohol do you have on a typical day when you are drinking?Patient does not drink12/31/2023Q3: How often do you have six or more drinks on one occasion?Never4PHQ-2AnswerDate RecordedPHQ-2 Xehpu838CommentsUnknownSex and Gender Information ValueDate RecordedSex Assigned at BirthNot on fileLegal OqqPoxtwp91/10/2013 1:19 PM ESTGender IdentityNot on fileSexual OrientationNot on file Last Filed Vital Signs Vital SignReadingTime TakenCommentsBlood Feqtwrwh093/8212/31/2023 11:00 PM EDT Ljwcv835212/31/2023 10:41 PM KTYAuoxrtmhtvl20.6 ??C (99.7 ??F)12/31/2023 10:41 PM EDTRespiratory Nxbt017612/31/2023 10:41 PM EDTOxygen Ngvawxrdhi69%12/31/2023 11:00 PM EDTInhaled Oxygen Concentration--Rmfgmc76.2 kg (168 lb)12/31/2023 10:42 PM WCJNzcdrv817.2 cm (5' 7 )12/31/2023 10:42 PM EDTBody Mass Index26.31012/31/2023 10:42 PM EDT Plan of Treatment Health MaintenanceDue DateLast DoneCommentsVaricella vaccine (2 of 2 - 2-dose childhood series)Depression Hegpbm8503/25/2013HIV screen 2016Chlamydia/GC issaah2203/25/2017Hepatitis C bpfymi7703/25/2019Pap smear 2022Flu vaccine (#1)03/12/2025OVID-19 Vaccine (1 - season) 2025DTaP/Tdap/Td vaccine (8 - Td or Tdap)104/, 02/25/2014, 11/28/2005, Additional history existsHepatitis B vocaafyYcqfswdgp59/09/2002, 2001, 2001Pneumococcal 0-49 years VaccineAged Out05/20/2002, 05/20/2002, 2001No longer eligible based on patient's age to complete this topicHib fgwmtinNuvlabwzy19/05/2004, 02/24/2003, 05/20/2002, Additional history existsMeasles,Mumps,Rubella (MMR) mxpkckuHtxogyeuyuqj15/19/2006, 05/20/2002Polio fzickbeEvygnsgvf49/19/2006, 02/24/2003, 05/20/2002, Additional history existsHPV yjajzvpMmawlomqf26/10/2017, 01/05/2016Meningococcal (ACWY) vaccineAged Out 12/19/2016, 01/05/2016No longer eligible based on patient's age to complete this topicHepatitis A tcdqbggAgkzjlskl71/02/2019, 12/19/2016, 01/05/2016, Additional history existsMeningococcal B vaccineAged OutNo longer eligible based on patient's age to complete this topic Insurance * Guarantor: Key Joseph TypeRelation to PatientDate of PhoneBilling AddressPersonal/ZoboxrTrwz[address] [address] * Guarantor: Key Joseph TypeRelation to PatientDate of PhoneBilling AddressPersonal/VyoktkBgvl[address] [phone] * Guarantor: Marcelina Mccabe LAccount TypeRelation to PatientDate of PhoneBilling AddressPersonal/WbyveiBiapvc66/03[birth year][address] [address] * Guarantor: Marcelina Mccabe LAccount TypeRelation to PatientDate of PhoneBilling AddressPersonal/CoagwxLcrpna20/03/[address] [address] * Guarantor: Krishna Hernández TypeRelation to PatientDate of PhoneBilling AddressPersonal/FamilyStep Bcyjfc5112/12/1974 [address] [phone] Care Teams Team MemberRelationshipSpecialtyStart DateEnd Nany Gimenez MD [address] [place] [address] PCP - GeneralFamily Lxkvwbzc79/4/21
[2025-07-26 19:55] LABS: Glucose Urine UA NEGATIVE (NEGATIVE)
[2025-07-26 19:55] LABS: Hematocrit 40.4 % (36.0-48.0); Hemoglobin 13.6 g/dL (12.0-16.0); Immature Granulocytes Abs Auto 0.00 10^3/uL (0.00-0.03); Immature Granulocytes Pct Auto 0.0 % (0.0-0.5); Lymphocytes Absolute Auto 0.7 10^3/uL (1.2-3.8); Mean Corpuscular HGB Conc 33.7 g/dL (29.9-35.2); Mean Corpuscular Hemoglobin 29.1 pg (26.7-34.0); Mean Corpuscular Volume 86.3 fL (81.0-99.0); Platelet Count 207 10^3/uL (150-450); Red Blood Count 4.68 10^6/uL (4.20-5.40); White Blood Count 3.8 10^3/uL (4.0-11.0)
[2025-07-26 19:58] LABS: HCG Qualitative Urine* NEGATIVE (NEGATIVE)
[2025-07-26 20:03] LABS: Cast Seen? NONE SEEN #/LPF (NONE SEEN); Crystals Seen? None Seen #/HPF (None Seen); Urine Culture Indicated NO
[2025-07-26] MEDS: 0.9 % SODIUM CHLORIDE 1,000 ML 999 ML IV (20:05)
[2025-07-26] MEDS: METHYLPREDNISOLONE SOD SUCC PF 125 MG/2 ML VIAL IVP (20:05)
[2025-07-26] MEDS: KETOROLAC TROMETHAMINE 30 MG/ML VIAL IVP (20:06)
[2025-07-26 20:08] LABS: SARS-CoV-2 Ag NEGATIVE (NEGATIVE)
[2025-07-26 20:11] LABS: Alanine Aminotransferase 33 U/L (14-59); Albumin Globulin Ratio 1.0; Albumin Level 4.0 g/dL (3.4-5.0); Alkaline Phosphatase 79 U/L (46-116); Anion Gap 13.0; Aspartate Amino Transferase 37 U/L (15-37); Blood Urea Nitrogen 8.0 mg/dL (7.0-18.0); Calcium 8.9 mg/dL (8.5-10.1); Carbon Dioxide 24.6 mmol/L (21.0-32.0); Chloride 104 mmol/L (98-107); Estimated GFR (African America >60 (>=60 mL/min/1.73m^2); Estimated GFR (Non-African Ame >60 (>=60 mL/min/1.73m^2); Globulin 4.2 g/dL; Glucose 91 mg/dL (74-106); Potassium 3.6 mmol/L (3.5-5.1); Sodium 138 mmol/L (136-145); Total Protein 8.2 g/dL (6.4-8.2)
[2025-07-26 20:14] LABS: Lactate/Lactic Acid 0.7 mmol/L (0.4-2.0)
[2025-07-26 20:47] VITALS: TEMP 37.6
== END 2025-07-26 21:17 | disposition home or self-care (01) ==
PROVIDERS: Emergency Provider Internal Medicine; PCP Family Medicine
DX: J10.1 Influenza due to other identified influenza virus with other respiratory manifestations (principal); J32.9 Chronic sinusitis, unspecified
CPT/HCPCS: 36415; 70486; 71046; 76376; 80053; 81001; 83605; 84703; 85025; 87804; 87811; 96361; 96374; 96375; 99284; J1885; J2919